=== PATIENT | male | born 2000 | race Caucasian/White ===

== ENCOUNTER 2024-11-06 20:16 | Emergency (ER) | payer OTHER ==
[~2024-11-06] VITALS: Ht 182.9 cm; Wt 100.0 kg
[2024-11-06 20:30] VITALS: TEMP 98.3
--- NOTE | 2024-11-06 21:00 | ELECTROCARDIOGRAPH REPORT ---
[facility] Test Date: 2024-11-06 Test Time: 20:58:37 Pat Name: ILA ALVAREZ Department: [facility]- Patient ID: [id number] Room: Gender: M Tableau Administrator: : 2000 Requested By: MADHU YOON Order Number: [id number] Reading MD: Measurements Intervals [place] Rate: 96 P: 70 IL: 150 QRS: 66 QRSD: 85 T: 72 QT: 353 QTc: 447 Interpretive Statements Sinus rhythm ST elev, probable normal early repol pattern Please click the below link to view image of tracing.
[2024-11-06 21:05] VITALS: BP 114/70; PULSE 96; RESP 16; O2SAT 99
--- NOTE | 2024-11-06 21:26 | Physician Documentation ---
History of Present Illness ~ Chief Complaint: Seizure Stated Complaint: SEIZURE Time Seen by MD: 21:07 Mode of Arrival: POV, Ambulatory HPI 24-year-old male presenting with syncope He tells me that he was outside in the heat all day, did not really eat or drink much, and then was exerting himself while he was out camping with his friends. He did drink several alcoholic drinks as well. He tells me then started to feel lightheaded, developed tunnel vision and blurry vision, became sweaty, and then fainted. His brother reports that he briefly lost consciousness, but did not fall or hit his head. They lowered him to the ground, and he did have some shaking of his arms briefly but then woke up. Following this, he felt nauseous and sweaty, but then slowly felt back to normal. Currently he is asymptomatic. Medication Reconciliation Allergies: Coded Allergies: No Known Allergies (Unverified , 11/06/24) Review of Systems Constitutional: Reports: diaphoresis Cardiovascular: Denies: chest pain Gastrointestinal: Reports: nausea; Denies: abdominal pain Neurological: Reports: dizziness, fainting Physical Exam Vital Signs: Temperature: 98.3, Source: Temporal, Heart Rate: 96, Respiratory Rate: 16, BP: 114/70, Pulse Oximetry: 99, Weight: 100.000 Oxygen Flow Rate: 0 Physical Exam General: This is a very pleasant and well-appearing young man, brother at bedside HEENT: Atraumatic, oropharynx appears dry Heart: Mild tachycardic, appears regular Lungs: Clear breath sounds bilateral, normal work of breathing, normal oxygen saturation on room air Abdomen: Soft, nondistended, nontender all quadrants Extremities: Warm and well-perfused, no edema Neuro: Alert and oriented, no focal deficits Psychiatric: Calm and cooperative with exam Progress Results/Orders Results/Orders Completed Orders - MADHU YOON MD Electrocardiogram (11/06/24 ) Vital Signs 11/06/24 11/06/24 11/06/24 20:30 20:52 21:05 Temp 98.3 Pulse 101 96 Resp 16 16 16 B/P (MAP) 118/79 114/70 (85) Pulse Ox 98 99 O2 Flow Rate 0 0 EKG/XRAY/CT/US/VASC/MRI EKG : Additional Comment I personally interpreted the EKG and this shows: Sinus rhythm, rate 96, QTC 447, no ischemic changes Medical Decision Making Differential Dx:Considerations: Include: anemia, dehydration, dysrhythmia, electrolyte disorder, vasovagal Additional Information The patient presents with a history and exam that are consistent with a vasovagal syncopal event. He has no findings to suggest a seizure. He has no findings to suggest a dangerous infection. His episode was likely triggered by dehydration, over exertion in the heat, and alcohol use. He was reassured, and given home care instructions including increased hydration. Return precautions given. Departure Time of Disposition: 21:25 Disposition: 01 HOME / SELF CARE / HOMELESS Impression: Primary Impression: Vasovagal syncope Additional Impression: Dehydration Referrals: NO PRIMARY CARE PROVIDER (PCP) Education Educated: Patient, Family Educated regarding: diagnosis, treatment, need for follow up Signature Scribe Signature: suzan Attestation: MADHU Hui MD Nov 06, 2024 21:26
== END 2024-11-06 21:33 | disposition home or self-care (01) ==
LOC: ER 20:18
DX: R55 Syncope and collapse (principal); E86.0 Dehydration; R11.0 Nausea
CPT/HCPCS: 93005; 99283